=== PATIENT | female | born 1940 | race Two or more races ===

== ENCOUNTER 2018-08-11 07:14 | Outpatient (CLI) | payer OTHER | END 2018-08-11 07:17 | disposition home or self-care (01) | LOC: TOM 07:14 | DX: K56.50 Intestinal adhesions [bands], unspecified as to partial versus complete obstruction (principal); K56.600 Partial intestinal obstruction, unspecified as to cause ==

== ENCOUNTER 2023-02-03 07:11 | Outpatient (CLI) | payer OTHER | END 2023-02-03 07:12 | disposition home or self-care (01) | LOC: NUCLEAR 07:11 | PROVIDERS: ATTEND Internal Medicine Gastroenterology | DX: K31.84 Gastroparesis (principal) | CPT/HCPCS: 78264; A9541 ==